=== PATIENT | female | born 1975 | race Asian ===

== ENCOUNTER 2019-08-24 07:44 | Emergency (ER) | payer BC ==
[~2019-08-24] VITALS: Ht 157.5 cm; Wt 91.6 kg
[2019-08-24 07:54] VITALS: Ht 157.5 cm; Wt 91.6 kg
[2019-08-24 08:53] LABS: CALCIUM 8.5 mg/dL (8.5-10.1); CARBON DIOXIDE 28.7 mmol/L (21-32); CHLORIDE SERUM 104 mmol/L (98-107); CREATININE SERUM 0.8 mg/dL (0.6-1.0); GFR1 > 60 mL/min; GLUCOSE SERUM 99 mg/dL (74-106); POTASSIUM SERUM 3.5 mmol/L (3.5-5.1); SODIUM SERUM 141 mmol/L (136-145)
[2019-08-24 08:54] LABS: BASOPHIL % 0.7 % (0-2); PLATELET COUNT 359 x10^3mcL (130-400); RED CELL DISTRIBUTION WIDTH 14.4 % (11.5-14.5)
[2019-08-24 08:58] LABS: ALBUMIN 3.6 g/dL (3.4-5.0); ALKALINE PHOSPHATASE 57 U/L (46-116); ALT/SGPT 27 U/L (14-59); AST/SGOT 13 U/L (15-37); BILIRUBIN TOTAL 0.4 mg/dL (0.20-1.00); TOTAL PROTEIN, SERUM 7.6 g/dL (6.4-8.2)
[2019-08-24 09:49] VITALS: BP 137/72
== END 2019-08-24 09:49 | disposition home or self-care (01) ==
LOC: ED 07:44
PROVIDERS: Emergency Medicine
DX: R00.2 Palpitations (principal); R07.89 Other chest pain; R61 Generalized hyperhidrosis; R11.0 Nausea
CPT/HCPCS: 36415; Q0092